=== PATIENT | female | born 1965 | race Two or more races ===

== ENCOUNTER 2024-12-01 17:24 | Emergency (ER) | payer BC, MEDICAID ==
[~2024-12-01] VITALS: Ht 167.6 cm; Wt 91.0 kg
[2024-12-01 17:30] VITALS: O2SAT 99
[2024-12-01] MEDS: SODIUM CHLORIDE 0.9% 1,000 ML IV ONE (17:56)
[2024-12-01 18:13] LABS: BASOPHILS % 0.6 % (0.0-2.0); EOSINOPHILS % 4.1 % (0.0-5.0); HEMATOCRIT. 34.6 % (36.0-48.0); HEMOGLOBIN. 11.4 g/dL (12.0-16.0); LYMPHOCYTES % 44.3 % (20.0-50.0); MEAN CORPUSCULAR HEMOGLOBIN 32.2 pg (28.0-32.0); MEAN CORPUSCULAR HGB CONC 32.9 g/dL (31.0-37.0); MEAN CORPUSCULAR VOLUME 97.9 fL (81.0-99.0); MONOCYTES % 9.8 % (2.0-8.0); NEUTROPHILS % 41.2 % (40.0-76.0); PLATELET 243 x1000/uL (130-400); RED BLOOD CELL COUNT 3.53 mill/uL (4.2-5.4); RED CELL DISTRIBUTION WIDTH 13.8 % (11.6-14.6); WHITE BLOOD COUNT 5.3 x1000/uL (4.5-11.0)
[2024-12-01 18:15] LABS: CHLORIDE 111 mEq/L (98-107); POTASSIUM 3.5 mEq/L (3.5-5.1); SODIUM 144 mEq/L (136-145)
[2024-12-01 18:16] LABS: CALCIUM 9.2 mg/dL (8.7-10.4); CARBON DIOXIDE 22 mEq/L (21-32)
[2024-12-01 18:21] LABS: GLUCOSE 95 mg/dL (70-105); UREA NITROGEN BLOOD 13 mg/dL (9-23)
[2024-12-01 18:22] LABS: ETHANOL BLOOD 71 mg/dL (<10)
[2024-12-01 18:28] LABS: TROPONIN I HIGH SENSITIVITY < 4 ng/L (3.0-34)
[2024-12-01 20:05] VITALS: BP 150/84; PULSE 76; RESP 14; TEMP 37; O2SAT 100
[2024-12-01 20:21] LABS: TROPONIN I HIGH SENSITIVITY < 4 ng/L (3.0-34)
[2024-12-01] MEDS ORDERED: PANT40SU MT (21:28)
[2024-12-01] MEDS ORDERED: ONDA4TAB50 MT (21:28)
== END 2024-12-01 22:30 | disposition home or self-care (01) ==
LOC: ER 17:24 → EDBEDREQ 17:37 → ER 22:30
DX: F10.129 Alcohol abuse with intoxication, unspecified (principal); R55 Syncope and collapse; Z79.899 Other long term (current) drug therapy; Y90.3 Blood alcohol level of 60-79 mg/100 ml
CPT/HCPCS: 80048; 80320; 83880; 85025; 84484; 36415; 71045; 93005; 96360; 99285; J7030; G0480